=== PATIENT | female | born 1995 | race Caucasian/White ===

== ENCOUNTER 2018-10-29 16:09 | Emergency (ER) | payer OTHER, MEDICAID ==
[~2018-10-29] VITALS: Ht 162.6 cm; Wt 59.0 kg
[2018-10-29] MEDS ORDERED: NOHOMEMEDICATIONS (16:26)
[2018-10-29] MEDS ORDERED: DOXYCYCLINE 10100 MG PO (16:57)
[2018-10-29 17:25] VITALS: BP 124/90
== END 2018-10-29 17:12 | disposition home or self-care (01) ==
LOC: M.ERS 16:09
DX: L02.31 Cutaneous abscess of buttock (principal)